=== PATIENT | male | born 1995 ===

== ENCOUNTER 2021-02-11 16:33 | Emergency (ER) | payer SELFPAY ==
[2021-02-11 16:35] VITALS: BP 126/76
[2021-02-11] MEDS ORDERED: KETOROLAC 30 MG/1 ML INJ IV ONE (18:59)
[2021-02-11] MEDS ORDERED: SODIUM CHLORIDE 0.9% 1000 ML 1,000 ML IV ONE (18:59)
[2021-02-11] MEDS ORDERED: ONDANSETRON 4 MG/2 ML INJ IV ONE (18:59)
--- NOTE | 2021-02-11 19:02 | Emergency Department Report ---
ED General Adult HPI - General Chief complaint: Fever Stated complaint: BODY ACHES Time Seen by Provider: 02/11/21 18:46 Source: patient, EMS Mode of arrival: Wheelchair Limitations: No Limitations - History of Present Illness Initial comments: 25-year-old -[place] male patient presents via EMS for sudden onset of nausea, vomiting, body aches, chills, and fever starting this morning around 6 AM. He states he is not vaccinated against COVID-19. He also reports a sore throat that he rates as a 10/10 in severity. Patient states he has a mild cough that is nonproductive and denies any shortness of breath or chest pain. He reports severe body aches all over his body that radiate from his back to his legs and bilateral leg and his arms. No past medical history per patient. He also denies any abdominal pain or stool changes - Related Data Previous Rx's Medication Instructions Recorded Last Taken Type Ibuprofen [Motrin 800 MG tab] 800 mg PO Q8HR PRN #20 tablet 02/11/21 Unknown Rx Ondansetron [Zofran Odt] 4 mg PO Q8HR PRN #15 tab.rapdis 02/11/21 Unknown Rx Allergies Allergy/AdvReac Type Severity Reaction Status Date / Time No Known Allergies Allergy Verified 02/11/21 16:35 ED Review of Systems ROS: Stated complaint: BODY ACHES Other details as noted in HPI Constitutional: chills, fever, malaise, weakness ENT: as per HPI Respiratory: cough Cardiovascular: denies: chest pain Gastrointestinal: as per HPI Skin: denies: change in color Neurological: denies: headache Hematological/Lymphatic: denies: swollen glands ED Past Medical Hx - Medications Home Medications: Home Medications Medication Instructions Recorded Confirmed Last Taken Type Ibuprofen [Motrin 800 MG tab] 800 mg PO Q8HR PRN #20 tablet 02/11/21 Unknown Rx Ondansetron [Zofran Odt] 4 mg PO Q8HR PRN #15 tab.rapdis 02/11/21 Unknown Rx ED Physical Exam - General Limitations: No Limitations General appearance: alert, in no apparent distress - Head Head exam: Present: atraumatic, normocephalic - Eye Eye exam: Present: normal appearance - Expanded ENT Exam Expanded Mouth exam: Absent: drooling, trismus, muffled voice Throat exam: Positive: tonsillar erythema (Bilateral), other (Uvula is midline). Negative: tonsillar exudate, R peritonsillar mass, L peritonsillar mass - Neck Neck exam: Present: lymphadenopathy (Mild bilateral anterior cervical tender lymphadenopathy noted) - Respiratory Respiratory exam: Present: normal lung sounds bilaterally. Absent: respiratory distress - Cardiovascular Cardiovascular Exam: Present: regular rate, normal rhythm - GI/Abdominal GI/Abdominal exam: Present: soft. Absent: distended, tenderness - Neurological Exam Neurological exam: Present: alert, oriented X3, normal gait - Psychiatric Psychiatric exam: Present: normal affect, normal mood - Skin Skin exam: Present: warm, dry, intact, normal color. Absent: rash ED Course Vital Signs 02/11/21 16:34 Temperature 100 F H Pulse Rate 82 Respiratory 18 Rate Blood Pressure 126/76 [Left] O2 Sat by Pulse 97 Oximetry ED Medical Decision Making - Lab Data Result diagrams: 02/11/21 19:18 02/11/21 19:18 - Medical Decision Making 25-year-old -[place] male patient presents via EMS for sudden onset of nausea, vomiting, body aches, chills, and fever starting this morning around 6 AM. He states he is not vaccinated against COVID-19. He also reports a sore throat that he rates as a 10/10 in severity. Patient states he has a mild cough that is nonproductive and denies any shortness of breath or chest pain. He reports severe body aches all over his body that radiate from his back to his legs and bilateral leg and his arms. No past medical history per patient. He also denies any abdominal pain or stool changes Anion gap of 17 noted on CMP, labs are otherwise without acute abnormalities. Patient given Toradol, normal saline, and Zofran. He is not tolerating fluids p.o. Fever has resolved. He is nontoxic-appearing and states his pain is resolved. Patient stable for discharge home. Recommend outpatient COVID-19 testing within the next 24 to 48 hours and self quarantine until further instructed. Strict return precautions were discussed in detail with patient who verbalizes understand Critical care attestation.: If time is entered above; I have spent that time in minutes in the direct care of this critically ill patient, excluding procedure time. ED Disposition Clinical Impression: Viral syndrome, Suspected COVID-19 virus infection Disposition: HOME / SELF CARE / HOMELESS Is pt being admited?: No Condition: Stable Instructions: Viral Illness, Adult, Prevent the Spread of COVID-19 if You Are Sick - [facility] Prescriptions: Ibuprofen [Motrin 800 MG tab] 800 mg PO Q8HR PRN #20 tablet PRN Reason: pain/fever Ondansetron [Zofran Odt] 4 mg PO Q8HR PRN #15 tab.rapdis PRN Reason: Nausea Referrals: PRIMARY CARE, [Primary Care Provider] - 3-5 Days [facility] [Provider Group] - 3-5 Days Forms: Work/School Release Form(ED)
[2021-02-11 19:43] LABS: Hematocrit 35.1 % (35.5-45.6); Hemoglobin 11.6 gm/dl (11.8-15.2); Mean Corpuscular HGB Conc 33 % (32-34); Mean Corpuscular Volume 92 fl (84-94); Platelet Count 132 K/mm3 (140-440); Red Blood Count 3.83 M/mm3 (3.65-5.03); Red Cell Distribution Width 13.1 % (13.2-15.2)
[2021-02-11 19:49] LABS: BUN/Creatinine Ratio 14; Blood Urea Nitrogen 13 mg/dL (9-20); Calcium 9.1 mg/dL (8.4-10.2); Hemolysis Index 7
[2021-02-11] MEDS ORDERED: ACETAMINOPHEN 500 MG TAB PO STA (19:50)
[2021-02-11 19:52] LABS: Basophils % (Auto) 0.8 % (0.0-1.8); Lymphocytes # (Auto) 0.3 K/mm3 (1.2-5.4); Lymphocytes % (Auto) 4.6 % (13.4-35.0); Monocytes # (Auto) 0.8 K/mm3 (0.0-0.8); Monocytes % (Auto) 12.5 % (0.0-7.3)
== END 2021-02-11 20:56 | disposition home or self-care (01) ==
LOC: ED 16:33
DX: B34.9 Viral infection, unspecified (principal); J02.9 Acute pharyngitis, unspecified; R05.9 Cough, unspecified; Z20.822 Contact with and (suspected) exposure to COVID-19
CPT/HCPCS: 36415; 80048; 85025; 87116; 87430; 96361; 96374; 96375; 99284; J1885; J2405; J7030; Q0162